=== PATIENT | male | born 1950 ===

== ENCOUNTER 2017-01-03 10:24 | Emergency (ER) | payer OTHER ==
[2017-01-03 10:33] VITALS: BMI 29.6
[2017-01-03 10:36] VITALS: BP 156/90
[2017-01-03] MEDS ORDERED: DiphenhydrAMINE 50 mg/ml Inj IM STA (10:53)
--- NOTE | 2017-01-03 11:01 | C.PDOC ---
History Of Present Illness The patient, a 66 y/o male, presents to the ED for evaluation of right arm swelling which began around 2 days ago after he consumed shrimp. Patient states he has a known allergy to shrimp; he last consumed shrimp many years ago and decided to give it a try. Patient also notes redness and itching to his arm. Otherwise, he denies fever, chills, sensation of throat swelling, facial swelling, difficulty with swallowing/breathing, or vocal changes. Time Seen by Provider: 01/03/17 10:40 Chief Complaint (Nursing): Allergic Reaction History Per: Patient History/Exam Limitations: no limitations Onset/Duration Of Symptoms: Days Current Symptoms Are (Timing): Still Present Location Of Injury: Right: Arm (upper ) Quality Of Symptoms: Itching, Swollen, Other (+redness ) Additional History Per: Patient Past Medical History Reviewed: Historical Data, Nursing Documentation, Vital Signs Vital Signs: Last Vital Signs Temp 98.7 F 01/03/17 10:33 Pulse 79 01/03/17 10:33 Resp 18 01/03/17 10:33 BP 156/90 H 01/03/17 10:33 Pulse Ox 98 01/03/17 11:12 - Medical History PMH: No Chronic Diseases Surgical History: No Surg Hx Family History: States: Unknown Family Hx - Social History Hx Alcohol Use: No Hx Substance Use: No - Immunization History Hx Tetanus Toxoid Vaccination: No Hx Influenza Vaccination: No Hx Pneumococcal Vaccination: No Review Of Systems Except As Marked, All Systems Reviewed And Found Negative. Constitutional: Negative for: Fever, Chills ENT: Negative for: Mouth Swelling, Throat Swelling Respiratory: Negative for: Cough, Shortness of Breath Skin: Positive for: Other (+right upper arm swelling, redness and itching ) Physical Exam - Physical Exam Appears: Non-toxic, No Acute Distress Skin: Warm, Dry, No Rash, Other (+erythema to right upper extremity ) Head: Atraumatic, Normacephalic Eye(s): bilateral: Normal Inspection Oral Mucosa: Moist Tongue: Normal Appearing Lips: Normal Appearing Throat: Normal, No Erythema, No Exudate Neck: Normal ROM, Supple Chest: Symmetrical, No Deformity, No Tenderness Cardiovascular: Rhythm Regular, No Murmur Respiratory: Normal Breath Sounds, No Rales, No Rhonchi, No Wheezing Gastrointestinal/Abdominal: Soft, No Tenderness, No Guarding, No Rebound Extremity: Normal ROM, Capillary Refill (less than 2 seconds ), Swelling (right upper extremity ) Pulses: Left Radial: Normal, Right Radial: Normal Neurological/Psych: Oriented x3, Normal Speech, Normal Cognition Gait: Steady ED Course And Treatment O2 Sat by Pulse Oximetry: 98 (on RA) Pulse Ox Interpretation: Normal Progress Note: Patient received Benadryl IM, Pepcid PO, and Prednisone PO. On reassessment, patient is resting comfortably, showing no signs of respiratory distress, and reports an improvement in his symptoms. Patient is stable for discharge with Rx. Patient is advised to follow up with his PMD within 1-2 days for further evaluaton. Disposition - Disposition Disposition Time: 11:16 Condition: STABLE Additional Instructions: Follow up with your PMD within 1-2 days. Return to ED if feel worse. Prescriptions: DiphenhydrAMINE [Benadryl] 25 mg PO .Q4-6 H #30 cap Famotidine [Pepcid] 20 mg PO BID #20 tab predniSONE [predniSONE Tab] 2 tab PO DAILY #8 tab Instructions: Food Allergy (ED) - Clinical Impression Clinical Impression: Food allergy - PA / VETERINARIAN ASSISTANT / Resident Statement MD/DO has reviewed & agrees with the documentation as recorded. - Scribe Statement The provider has reviewed the documentation as recorded by the Scribe (Jessika Beyer) All medical record entries made by the Scribe were at my direction and personally dictated by me. I have reviewed the chart and agree that the record accurately reflects my personal performance of the history, physical exam, medical decision making, and the department course for this patient. I have also personally directed, reviewed, and agree with the discharge instructions and disposition.
[2017-01-03 11:34] VITALS: PULSE 80; RESP 20; TEMP 97.6
[2017-01-03 17:29] VITALS: O2SAT 98
== END 2017-01-03 11:34 | disposition home or self-care (01) ==
LOC: EDBD 10:24 → C.ER 10:24
DX: L27.2 Dermatitis due to ingested food (principal)
CPT/HCPCS: 96372; 99285; J1200